=== PATIENT | male | born 1960 | race Caucasian/White ===

== ENCOUNTER 2023-02-10 09:57 | Emergency (ER) | payer OTHER, SELFPAY ==
[2023-02-10 10:03] VITALS: BP 139/91; PULSE 83; RESP 16; TEMP 36.5; O2SAT 95; BMI 23.7
[2023-02-10 10:17] VITALS: BP 139/91; O2SAT 96
--- NOTE | 2023-02-10 10:21 | ED_ITS ---
HPI - Nausea/Vomiting/Diarrhea General: Chief complaint: Abdominal Pain Stated complaint: Diarrhea for over a week Time Seen by Provider: 02/10/23 10:08 History of Present Illness: Patient is a 62-year-old male that comes to the ED with diarrhea. Patient states that he has chronic joint pain for over the past 20 years from being in the [employer]. He was using THC for his pain but states that it got too expensive, so he started taking herbal supplement. He started taking an herbal supplement about a week ago that is supposed to help with pain. Since taking the herbal he has been having about 4-5 episodes of diarrhea a day. He does endorse the first couple days having a fever and chills, but denies any other symptoms. He stopped taking the herbal yesterday and his diarrhea has improved. He denies any nausea/vomiting, abdominal pain, blood in stool, dysuria or hematuria. Associated nausea: No Associated symtoms: Denies change in vision, chest pain, dysuria, fatigue, headache(s), nausea or palpitations Review of Systems Const: Denies: fever(s), chills or fatigue Eyes: Denies: change in vision or eye discomfort ENMT: Denies: throat pain, odynophagia, nasal discharge or nasal congestion Card: Denies: chest pain, palpitations, edema, swelling of feet/ankles, dyspnea on exertion or orthopnea Resp: Denies: dyspnea, productive cough or non-productive cough GI: Reports: diarrhea; Denies: abdominal pain, nausea, vomiting, constipation or hematochezia : Denies: flank pain, difficulty urinating, dysuria or hematuria Musc: Denies: neck pain, back pain or extremity swelling Skin/Breast: Denies: rash or new lesions Neuro: Denies: headache(s), numbness in extremities or weakness in extremities PFSH ED PFSH: Medical History (Updated 02/10/23 @ 11:06 by PETE Villalobos) No pertinent family history Surgical History (Updated 02/10/23 @ 10:32 by PETE Villalobos) No pertinent past surgical history Physical Exam Const: COMMON NORMALS: no acute distress, patient oriented x3, healthy appearing and alert HENMT: COMMON NORMALS: normocephalic HEAD & SCALP: normocephalic MOUTH: Normal oral and palatal mucosa present THROAT: posterior oropharynx normal and uvula midline Neck/C-Spine: COMMON NORMALS: supple GENERAL: Yes normal visual inspection Resp: COMMON NORMALS: normal respiratory effort, No retractions, No use of accessory muscles and clear to auscultation bilaterally AUSCULTATION: clear to auscultation bilaterally Cardio: COMMON NORMALS: regular rate, regular rhythm, S1 normal heart sound present, S2 normal heart sound present, No gallops present (Cardio), No clicks present (Cardio), No murmurs present (Cardio) and Peripheral pulses 2+ throughout RATE: regular rate RHYTHM: regular rhythm HEART SOUNDS: S1 normal heart sound present and S2 normal heart sound present PERIPHERAL PULSES: Peripheral pulses 2+ throughout GI: COMMON NORMALS: Normal to inspection, nondistended, normoactive bowel sounds present, Soft to palpation, non-tender and no masses PALPATION: Yes Soft to palpation OTHER: Patient has no abdominal tenderness to palpation and no other signs of acute abdomen. : COMMON NORMALS: Yes no CVA tenderness BLADDER/KIDNEY EXAM: Yes no CVA tenderness Back/Pelvis: COMMON NORMALS: no CVA tenderness Extremity: COMMON NORMALS: normal to inspection Neuro: COMMON NORMALS: patient oriented x3 SENSORIUM/ORIENTATION: Yes alert GAIT: Yes Normal gait present Skin: GENERAL SKIN EXAM: dry skin Course Vital Signs: Vital signs: Vital Signs Temperature 97.7 F 02/10/23 10:03 Pulse Rate 83 02/10/23 10:03 Respiratory Rate 16 02/10/23 10:03 Blood Pressure 139/91 02/10/23 10:17 Pulse Oximetry 96 02/10/23 10:17 Oxygen Delivery Me thod Room Air 02/10/23 10:17 MDM - Nausea/Vomiting/Diarrhea Medical Decision Making Patient is a 62-year-old male that comes to the ED with diarrhea. Patient states that he has chronic joint pain for over the past 20 years from being in the [employer]. He was using THC for his pain but states that it got too expensive, so he started taking herbal supplement. He started taking an herbal supplement about a week ago that is supposed to help with pain. Since taking the herbal he has been having about 4-5 episodes of diarrhea a day. He does endorse the first couple days having a fever and chills, but denies any other symptoms. He stopped taking the herbal yesterday and his diarrhea has improved. He denies any nausea/vomiting, abdominal pain, blood in stool, dysuria or hematuria. Vitals are stable. Patient appears nontoxic in no acute distress or pain. Exam is completely benign and patient has no abdominal tenderness. Has a slightly elevated white blood cell count of 13.3 the rest of his labs are unremarkable. Patient was stable for discharge home and diagnosed with diarrhea. His symptoms are likely due to the herbal supplement he is taking and I told him to stop taking supplement to see if symptoms improve. Return to ED precautions given. Follow-up with PCP within the next week for reevaluation. Patient understood and agreed with plan. Lab Data I reviewed the patient's lab results. 02/10/23 10:26 02/10/23 10:26 Laboratory Results WBC 13.3 10^3/uL (4.0-10.0) H 02/10/23 10: RBC 4.06 10^6/uL (4.1-5.3) L 02/10/23 10: Hgb 12.3 g/dL (11.7-16.6) 02/10/23 10: Hct 38.0 % (42.0-52.0) L 02/10/23 10: MCV 93.6 fl (80-94) 02/10/23 10: MCH 30.3 pg (28.0-34.0) 02/10/23 10: MCHC 32.4 g/dL (30.0-36.0) 02/10/23 10: RDW 13.6 % (12.1-15.1) 02/10/23 10: Plt Count 493 10^3/cmm (130-400) H 02/10/23 10: MPV 8.5 fL (7.4-10.4) 02/10/23 10:26 Neut % (Auto) 41.5 % 02/10/23 10:26 Lymph % (Auto) 14.6 % 02/10/23 10:26 [place] % (Auto) 5.6 % 02/10/23 10:26 Eos % (Auto) 36.8 % 02/10/23 10:26 Baso % (Auto) 1.2 % 02/10/23 10:26 Neut # (Auto) 5.52 10^3/uL (1.8-7.7) 02/10/23 10:26 Lymph # (Auto) 1.9 10^3/uL (0.8-4.8) 02/10/23 10:26 [place] # (Auto) 0.8 10^3/uL (0.2-0.9) 02/10/23 10:26 Eos # (Auto) 4.9 10^3/uL (0.0-0.8) H 02/10/23 10:26 Baso # (Auto) 0.2 10^3/uL (0.0-0.1) H 02/10/23 10:26 Nucleated RBC % (auto) 0 % 02/10/23 10:26 Nucleated RBCs # 0.0 /100WBC 02/10/23 10:26 Sodium 135 mmol/L (136-145) L 02/10/23 10:26 Potassium 4.7 mmol/L (3.5-5.1) 02/10/23 10:26 Chloride 97 mmol/L (98-107) L 02/10/23 10:26 Carbon Dioxide 28 mmol/L (22-29) 02/10/23 10:26 Anion Gap 14.7 (5-19) 02/10/23 10:26 BUN 6 mg/dL (8-23) L 02/10/23 10:26 Creatinine 0.6 mg/dL (0.7-1.2) L 02/10/23 10:26 GFR Calculation 137.0 mL/min (90-130) H 02/10/23 10:26 Glucose 183 mg/dL (65-115) H 02/10/23 10:26 Calculated Osmolality 282 mOsm/kg (285-295) L 02/10/23 10:26 Calcium 9.1 mg/dL (8.5-10.5) 02/10/23 10:26 Total Bilirubin 0.3 mg/dL (0.15-1.2) 02/10/23 10:26 AST 72 U/L (0-40) H 02/10/23 10:26 ALT 46 U/L (0-41) H 02/10/23 10:26 Alkaline Phosphatase 207 U/L (40-130) H 02/10/23 10:26 Total Protein 7.4 g/dL (6.6-8.7) 02/10/23 10:26 Albumin 4.0 g/dL (3.5-5.2) 02/10/23 10:26 Globulin 3.4 g/dL (1.3-4.6) 02/10/23 10:26 Lipase 10 U/L (13-60) L 02/10/23 10:26 Urine Color Dark yellow (Yellow) 02/10/23 10:34 Urine Appearance Clear (CLEAR) 02/10/23 10:34 Urine pH 8 (5-7) H 02/10/23 10:34 Ur Specific [place] 1.015 (1.005-1.030) 02/10/23 10:34 Urine Protein Neg (Negative) 02/10/23 10:34 Urine Glucose (UA) Norm (Normal) 02/10/23 10:34 Urine Ketones Negative (Negative) 02/10/23 10:34 Urine Blood Neg (Negative) 02/10/23 10:34 Urine Nitrate Negative (Negative) 02/10/23 10:34 Urine Bilirubin Neg (Negative) 02/10/23 10:34 Prot Sulfosalicylic Acd Negative (Negative) 02/10/23 10:34 Urine Urobilinogen Norm mg/dL (Negative) 02/10/23 10:34 Ur Leukocyte Esterase Negative (Negative) 02/10/23 10:34 Discharge Plan Discharge Patient Disposition: Home Clinical Impression: Diarrhea Condition: Stable Discharge Orders: Discharge ED (Routine); Ordered 02/10/23 Ordered By: Ten Tomlinson Referrals: Yaron Lovett, DO [Primary Care Provider] - Discharge Diet: Regular Discharge Activity: Increase activity as tolerated Patient Instructions: Diarrhea - Adult Activity Restrictions/Additional Instructions: Follow-up with medical provider as directed in the next 5 to 7 days for reevaluation. Stop taking herbal supplement to help with diarrhea. Sure to drink plenty of fluids and stay hydrated. Return to the ER or your medical provider if condition worsens. Please read and understand discharge instructions. Thank you for choosing [facility] for your healthcare needs today. Please realize this is an emergency room and that we are providing you with a medical screening exam and this may not be complete and all inclusive of all the testing and or work up that you may need to determine your ailment or severity of your illness. It is very important that you follow up as instructed or that you return to the Emergency Department should you have concerns or if your condition changes or worsens in any way. Coding Level of Care Code ED Service Unit Operator for Bernie Sanabria
[2023-02-10] MEDS: ketorolac 30 mg/mL INJ IVP (10:26)
[2023-02-10 10:33] LABS: Basophils # 0.2 10^3/uL (0.0-0.1); Basophils % 1.2 %; Eosinophils # 4.9 10^3/uL (0.0-0.8); Eosinophils % 36.8 %; Hemoglobin 12.3 g/dL (11.7-16.6); Lymphocytes # 1.9 10^3/uL (0.8-4.8); Lymphocytes % 14.6 %; Mean Corpuscular HGB Conc 32.4 g/dL (30.0-36.0); Mean Corpuscular Hemoglobin 30.3 pg (28.0-34.0); Mean Corpuscular Volume 93.6 fl (80-94); Mean Platelet Volume 8.5 fL (7.4-10.4); Monocytes # 0.8 10^3/uL (0.2-0.9); Monocytes % 5.6 %; Neutrophils # 5.52 10^3/uL (1.8-7.7); Neutrophils % 41.5 %; Nucleated Red Blood Cells % 0 %; Platelet Count 493 10^3/cmm (130-400); Red Blood Count 4.06 10^6/uL (4.1-5.3); Red Cell Distribution Width 13.6 % (12.1-15.1); White Blood Count 13.3 10^3/uL (4.0-10.0)
[2023-02-10 10:46] LABS: Add Urine Microscopic? NO; Charge for UA Resulting for Rev
[2023-02-10 10:50] LABS: Alanine Aminotransferase 46 U/L (0-41); Alkaline Phosphatase 207 U/L (40-130); Anion Gap 14.7 (5-19); Blood Urea Nitrogen 6 mg/dL (8-23); Calcium 9.1 mg/dL (8.5-10.5); Carbon Dioxide 28 mmol/L (22-29); Chloride 97 mmol/L (98-107); Globulin 3.4 g/dL (1.3-4.6); Glucose 183 mg/dL (65-115); Lipase 10 U/L (13-60); Osmolality Calculated 282 mOsm/kg (285-295); Potassium 4.7 mmol/L (3.5-5.1); Sodium 135 mmol/L (136-145); Total Bilirubin 0.3 mg/dL (0.15-1.2); Total Protein 7.4 g/dL (6.6-8.7)
[2023-02-10 10:56] LABS: Urine Appearance Clear (CLEAR); Urine Color Dark Yellow (Yellow)
[2023-02-10 10:57] LABS: Bilirubin Urine Neg (Negative); Blood Urine Neg (Negative); Glucose Urine UA Norm (Normal); Ketones Urine Negative (Negative); Leukocyte Esterase Urine Negative (Negative); Nitrate Urine Negative (Negative); Protein Urine Neg (Negative); Specific Gravity, Urine 1.015 (1.005-1.030); Sulfosalicylic Acid Urine Negative (Negative); Urobilinogen Urine Norm (Negative); pH Urine 8 (5-7)
[2023-02-10 10:58] LABS: Aspartate Amino Transferase 72 U/L (0-40)
== END 2023-02-10 11:17 | disposition home or self-care (01) ==
PROVIDERS: Emergency Provider Physician Assistant; PCP Emergency Medicine Emergency Medical Services
DX: R19.7 Diarrhea, unspecified (principal)
CPT/HCPCS: 36415; 80053; 81003; 83690; 85025; 96374; 99284; J1885

== ENCOUNTER 2025-03-16 14:34 | Outpatient (CLI) | payer OTHER, SELFPAY ==
--- NOTE | 2025-03-16 14:42 | MR_ITS ---
WS: [id number] MRI LUMBAR SPINE NONCONTRAST HISTORY: LUMBAR RADICULOPATHY COMPARISON: None available. TECHNIQUE: Sagittal and axial multisequence imaging is submitted. Anterior cervical fusion hardware is present. Mild narrowing of the central cervical canal. Mild anterior wedging of T11 and T12 with no marrow edema. Moderate increase in lumbar lordosis with RIGHT curvature. L5 anterolisthesis by 5 mm. No fracture or marrow edema. Disc spaces are narrowed and desiccated. Conus terminates normally at L1-2 disc level. L1-L2: Mild annular disc bulging with bilateral facet arthritis. Shallow RIGHT foraminal disc protrusion. Moderate facet arthritis. Mild bilateral subarticular recess and foraminal stenosis. L2-L3: Deformity of the thecal sac secondary to scoliosis and facet disease. Diffuse disc bulging greatest to the LEFT. Disc osteophyte encroachment upon the ventral canal. Mild central stenosis. Moderate to severe LEFT foraminal and subarticular recess stenosis due to disc and osteophyte disease. Moderate size LEFT foraminal disc protrusion. Mild RIGHT foraminal stenosis. L3-L4: Diffuse annular disc bulging with facet and ligamentum flavum disease. Thecal sac is being deformed. Moderate LEFT and mild RIGHT foraminal stenosis. L4-L5: Mild diffuse annular disc bulging. Facet joint arthropathy, RIGHT greater than LEFT. Fluid in the facet joint. Small complex cyst associated with the RIGHT facet joint. Severe RIGHT foraminal stenosis and moderate on the LEFT. L5-S1: Diffuse annular disc bulging. Suspect RIGHT hemilaminectomy defect. Mild subarticular recess and moderate foraminal stenosis. LEFT renal cyst 9 mm. MR/MR lumbar spine wo con* [id number] IMPRESSION: 1. Moderately severe RIGHT rotary scoliosis lumbar spine with increase in lumb ar lordosis. 2. Multiple levels of central, subarticular recess and significant foraminal s tenosis. Stenosis due to combination of the scoliosis, disc and osteophyte dise ase, disc protrusions and facet arthritis. 3. L2-3: Moderate to severe LEFT foraminal subarticular recess stenosis and mi ld on the RIGHT. 4. L3-4: Moderate LEFT and mild RIGHT foraminal stenosis. 5. L4-5: Severe RIGHT foraminal stenosis and moderate on the LEFT. RIGHT facet joint cyst. 6. L5-S1: Moderate foraminal stenosis and mild subarticular recess stenosis. 7. L1-2: Mild bilateral subarticular recess and foraminal stenosis.
== END 2025-03-16 14:35 | disposition home or self-care (01) ==
PROVIDERS: PCP Emergency Medicine Emergency Medical Services; Visit Provider Family Medicine
DX: M51.16 Intervertebral disc disorders with radiculopathy, lumbar region (principal); M43.22 Fusion of spine, cervical region; M41.86 Other forms of scoliosis, lumbar region; M99.63 Osseous and subluxation stenosis of intervertebral foramina of lumbar region; M71.38 Other bursal cyst, other site
CPT/HCPCS: 72148

== ENCOUNTER → 2025-03-30 13:03 | Outpatient (BNVA) | payer OTHER, SELFPAY | PROVIDERS: PCP Emergency Medicine Emergency Medical Services; Visit Provider Orthopaedic Surgery | DX: M51.362 Other intervertebral disc degeneration, lumbar region with discogenic back pain and lower extremity pain (principal); M54.17 Radiculopathy, lumbosacral region | CPT/HCPCS: 72110; 99203 ==

== ENCOUNTER → 2025-04-11 08:40 | Outpatient (BNVA) | payer OTHER, SELFPAY | PROVIDERS: PCP Emergency Medicine Emergency Medical Services; Visit Provider Orthopaedic Surgery | DX: M54.17 Radiculopathy, lumbosacral region (principal); M51.362 Other intervertebral disc degeneration, lumbar region with discogenic back pain and lower extremity pain; Z01.818 Encounter for other preprocedural examination | CPT/HCPCS: 36415; 72110; 80053; 81001; 85025; 99214 ==

== ENCOUNTER → 2025-04-21 10:42 | Outpatient (BNVA) | payer OTHER, SELFPAY | PROVIDERS: PCP Emergency Medicine Emergency Medical Services; Visit Provider Family Medicine | DX: Z01.818 Encounter for other preprocedural examination (principal) | CPT/HCPCS: 80048 ==

== ENCOUNTER 2025-05-12 07:30 | Day surgery (SDC) | payer OTHER, SELFPAY ==
[2025-05-12] VITALS (11 sets, daily range): BP systolic 118–172; BP diastolic 61–93; PULSE 61–90; RESP 16–18; TEMP 36.1–36.3; O2SAT 93–99; BMI 24.8
--- NOTE | 2025-05-12 08:54 | ANES.PREANE2 ---
Pre-Anesthetic Assessment Height/Weight: Height 5 ft 11 in Weight 178 lb Temp Pulse Resp BP Pulse Ox O2 Del Method 97.4 F L 61 16 172/93 97 Room Air 05/12/25 07:55 05/12/25 07:55 05/12/25 07:55 05/12/25 07:55 05/12/25 07:55 05/12/25 07:55 Preop Diagnosis: Lumbar stenosis with neurogenic claudication Operation Date: 05/12/25 09:20 Proposed Procedures p Lumbar Spine Decompression(Not Applicable) - Satnam Vanessa, DO Was Beta Leigh taken within 24 hours: N/A Was Clonidine taken within 24 hours: N/A Last intake: Intake Last Liquid Date 05/11/25 Last Liquid Time 21:30 Last Solid Date 05/11/25 Last Solid Time 21:30 Social No alcohol and No tobacco Smokes marijuana daily Exam alert, oriented x 3 and regular rate & rhythm Airway Submandibular: within normal limits Cervical ROM: within normal limits Mallampati: Class III Comments: Comments: Missing teeth on top and bottom, denies any loose Anesthetic Plan ASA status: 4 Anesthesia: General Other: No prior issues with anesthesia NPO since yesterday evening Chronic smoker, only smokes marijuana now History of hypertension on amlodipine. Preop BP 172/93 Hypothyroidism on Synthroid GERD, controlled with Pepcid Labs reviewed from 04/11/2025 and acceptable for procedure. Chronically low sodium, recent NA 128 on 04/21/2027. Patient brought in lab results from outside facility on 05/03/2025 showing NA of 130. Plan for GETA Medications/Allergies Home Medications ?Medication ?Instructions ?Recorded ?Confirmed ?Last Taken ?Type acetaminophen 500 mg tablet 2,000 mg PO QID 04/21/25 05/11/25 05/11/25 History (Tylenol Extra Strength) amlodipine 5 mg tablet 5 mg PO DAILY 04/21/25 05/11/25 05/12/25 History diclofenac sodium 75 mg 75 mg PO BID 04/21/25 05/11/25 05/11/25 History tablet,delayed release duloxetine 30 mg capsule,delayed 30 mg PO QPM 04/21/25 05/11/25 05/10/25 History release famotidine 10 mg tablet 10 mg PO DAILY 04/21/25 05/11/25 05/11/25 History levothyroxine 50 mcg tablet 50 mcg PO DAILY 04/21/25 05/11/25 05/12/25 History (Synthroid) tamsulosin 0.4 mg capsule 0.4 mg PO QPM 04/21/25 05/11/25 05/10/25 History Allergies Allergy/AdvReac Type Severity Reaction Status Date / Time No Known Allergies Allergy Verified 04/21/25 10:29 Current Medications Generic Name Dose Route Start Last Admin Trade Name Freq PRN Reason Stop Dose Admin Sodium Chloride 1,000 mls @ 30 mls/hr 05/12/25 07:45 05/12/25 08:10 Sodium Chloride 0.9% IV 05/13/25 07:44 30 mls/hr .Q24H NOAH Administration PFSH Anesthesia Medical History No pertinent family history Surgical History No pertinent past surgical history Social History Smoking and tobacco/nicotine status: current every day tobacco/nicotine user
--- NOTE | 2025-05-12 09:27 | W.PM.OPSFHP ---
Same Day Surgery H&P Indication for Procedure/HPI DATE OF PROCEDURE: May 12, 2025 CHIEF COMPLAINT/INDICATIONFOR SURGICAL PROCEDURE: Back and leg pain PREOP DIAGNOSIS: Lumbar stenosis with neurogenic claudication PLANNED PROCEDURE: Operation Date: 05/12/25 09:20 Proposed Procedures p Lumbar Spine Decompression(Not Applicable) - Satnam Vanessa DO Medications/Allergies* Home Medications ?Medication ?Instructions ?Recorded ?Confirmed ?Type acetaminophen 500 mg tablet 2,000 mg PO QID 04/21/25 05/11/25 History (Tylenol Extra Strength) amlodipine 5 mg tablet 5 mg PO DAILY 04/21/25 05/11/25 History diclofenac sodium 75 mg 75 mg PO BID 04/21/25 05/11/25 History tablet,delayed release duloxetine 30 mg capsule,delayed 30 mg PO QPM 04/21/25 05/11/25 History release famotidine 10 mg tablet 10 mg PO DAILY 04/21/25 05/11/25 History levothyroxine 50 mcg tablet 50 mcg PO DAILY 04/21/25 05/11/25 History (Synthroid) tamsulosin 0.4 mg capsule 0.4 mg PO QPM 04/21/25 05/11/25 History Allergies/Adverse Reactions Allergy/AdvReac Type Severity Reaction Status Date / Time No Known Allergies Allergy Verified 04/21/25 10:29 Current Medications: Generic Name Dose Route Start Last Admin Trade Name Freq PRN Reason Stop Dose Admin Sodium Chloride 1,000 mls @ 30 mls/hr 05/12/25 07:45 05/12/25 08:10 Sodium Chloride 0.9% IV 05/13/25 07:44 30 mls/hr .Q24H NOAH Administration Pertinent History/Comorbid Conditions* Medical History (Updated 03/30/25 @ 14:08 by Satnam Vanessa DO) No pertinent family history Surgical History (Updated 02/10/23 @ 10:32 by PETE Villalobos) No pertinent past surgical history Social History Smoking and tobacco/nicotine status: current every day tobacco/nicotine user Pertinent Exam Findings alert, oriented x 3 and procedure specific exam findings Recommendations Risks and benefits of procedure reviewed Surgery/Procedure today Coding Level of Care Code Acute Code for Chg Fwd
[2025-05-12] MEDS: ceFAZolin 2,000 mg SDV 2000 MG IVP (09:38)
[2025-05-12] MEDS: lidocaine-epi 1% 20 mL INJ 10 ML INJECTION (10:30)
--- NOTE | 2025-05-12 11:23 | XR_ITS ---
WS: [id number] Exam: XR lumbar spine 2-3V* [id number] Date/Time of Exam: 05/12/2025 11:23 AM Reason For Exam: OR PICS DLP: AP intraoperative C-arm images of the lumbar spine are submitted. Images are obtained for preop localization purposes.
--- NOTE | 2025-05-12 11:42 | P.OP_ITS ---
Operative Report Date of procedure: May 12, 2025 Pre-op diagnosis: Lumbar stenosis neurogenic claudication Post-op diagnosis: same Procedure done: 1. L3-4 laminectomy with partial facetectomy 2. L4-5 laminectomy partial facetectomy Surgeon: Satnam Vanessa DO Estimated blood loss (mL): 15 Procedure: 1. L3-4 laminectomy with partial facetectomy 2. L4-5 laminectomy partial facetectomy Patient is brought to the operative suite. After undergoing anesthesia they are placed in the prone position. All areas of impingement are well padded. Patient is then prepped and draped in the normal sterile fashion. A skin incision is made over the L3/4 level. This is confirmed under c-arm guidance. A series of dilators are passed and the tubular retractor is docked on the L3 lamina. A bovie is used to clear the soft tissue off the lamina and the L 3/4 facet joint. A high speed alma is then used to perform the laminectomy and take down the medial aspect of the L 3/4 facet joint. A kerrison rongeure was then used to take down the remaining lamina and smooth the edge of the laminectomy up to the point where the ligamentum flavum attaches. Attention was then brought to the medial aspect of the facet joint. The remaining medial aspect of the superior and inferior aspect of the facet joint were taken down with the kerrison from the pedicle of L3 to L 4. The facet joint had significant hypertrophy. Attention was then brought to the Ligamentum Flavum. The ligament was taken down from the lamina of L3 to L4 and out medially to the remaining facet joint. The ligament was thick. The dura was then exposed. There was a small dural tear that occurred on the left side. A DuraGen patch was placed along with DuraSeal.. The L3 nerve was then traced with a curette out the L3/4 foramen and found to be adequately decompressed. The L4 nerve was traced with a curette around the L4 pedicle. The lateral recess was opened with a kerrison helping to further decompress the L4 nerve. Wound is then irrigated copiously with saline and surgiflo is used to stop any bleeding. The tubular retractor is removed A skin incision is made over the L4/5 level. This is confirmed under c-arm guidance. A series of dilators are passed and the tubular retractor is docked on the L4 lamina. A bovie is used to clear the soft tissue off the lamina and the L 4/5 facet joint. A high speed alma is then used to perform the laminectomy and take down the medial aspect of the L 4/5 facet joint. A kerrison rongeure was then used to take down the remaining lamina and smooth the edge of the laminectomy up to the point where the ligamentum flavum attaches. Attention was then brought to the medial aspect of the facet joint. The remaining medial aspect of the superior and inferior aspect of the facet joint were taken down with the kerrison from the pedicle of L4 to L 5. The facet abraham nt had significant hypertrophy. Attention was then brought to the Ligamentum Flavum. The ligament was taken down from the lamina of L4 to L5 and out medially to the remaining facet joint. The ligament was thick. The dura was then exposed. The dura was in good repair. The L4 nerve was then traced with a curette out the L4/5 foramen and found to be adequately decompressed. The L5 nerve was traced with a curette around the L5 pedicle. The lateral recess was opened with a kerrison helping to further decompress the L5 nerve. Wound is then irrigated copiously with saline and surgiflo is used to stop any bleeding. The tubular retractor is removed and the wound is closed with vicryl and monocryl suture. Steri strips were applied. A sterile dressing is then placed. Patient was then placed in the supine position and transferred to the PACU in stable condition.
--- NOTE | 2025-05-12 12:53 | ANE.PACU2 ---
Inpatient post-anesthesia follow up: Airway intact: Yes Vital signs: Temperature 97.0 F Pulse Rate 63 Respiratory Rate 18 Blood Pressure 148/78 Pulse Oximetry 99 Oxygen Delivery Me thod Room Air Oxygen Flow Rate Fraction of Inspir ed Oxygen Hydration adequate: Yes Nausea and vomiting: No Pain level: 1 Mental status: Baseline
== END 2025-05-12 12:53 | disposition home or self-care (01) ==
PROVIDERS: PCP Family Medicine; Visit Provider Orthopaedic Surgery
PROC: (CPT 63005; principal; 2025-05-12 09:10)
DX: M48.062 Spinal stenosis, lumbar region with neurogenic claudication (principal); I10 Essential (primary) hypertension; E03.9 Hypothyroidism, unspecified; K21.9 Gastro-esophageal reflux disease without esophagitis; F17.200 Nicotine dependence, unspecified, uncomplicated; F12.90 Cannabis use, unspecified, uncomplicated
CPT/HCPCS: 63047; 63048; 72100; C9358; J0330; J0690; J1100; J1171; J1885; J2250; J2405; J2704; J3010; J3490; J7030; J9999

== ENCOUNTER → 2025-05-23 12:25 | Outpatient (BNVA) | payer OTHER, SELFPAY | PROVIDERS: PCP Family Medicine; Visit Provider Orthopaedic Surgery | DX: Z98.890 Other specified postprocedural states (principal) | CPT/HCPCS: 99024 ==

== ENCOUNTER → 2025-06-20 08:38 | Outpatient (BNVA) | payer OTHER, SELFPAY | PROVIDERS: PCP Family Medicine; Visit Provider Orthopaedic Surgery | DX: Z98.890 Other specified postprocedural states (principal) | CPT/HCPCS: 99024 ==

== ENCOUNTER → 2025-08-01 08:17 | Outpatient (BNVA) | payer OTHER, SELFPAY | PROVIDERS: PCP Family Medicine; Visit Provider Orthopaedic Surgery | DX: Z98.890 Other specified postprocedural states (principal) | CPT/HCPCS: 99024 ==